=== PATIENT | male | born 1985 | race Two or more races ===

== ENCOUNTER 2019-11-22 14:27 | Emergency (ER) | payer SELFPAY ==
[2019-11-22 14:35] VITALS: BP 132/78; PULSE 90; BMI 30.4
[2019-11-22] MEDS ORDERED: TETRACAINE 0.5% HCL 0.6ML DROPPER.BOTTLE OD ONE (15:02)
[2019-11-22] MEDS ORDERED: TETRACAINE 0.5% OPHTH SOLN 2 ML BOTTLE ONE (15:02)
[2019-11-22] MEDS ORDERED: FLUORESCEIN NA 1 EA STRIP ONE (15:02)
[2019-11-22] MEDS ORDERED: FLUORESCEIN NA 1 EA STRIP OD ONE (15:02)
--- NOTE | 2019-11-22 15:13 | PDOC ---
History of Present Illness - General Chief Complaint: Eye Problem Stated Complaint: LT. EYE SWELLING Time Seen by Provider: 11/22/19 15:00 History Source: Patient Exam Limitations: Clinical Condition - History of Present Illness Initial Comments: 11/22/19 15:57 Patient with no significant past medical history present with complaint of foreign body sensation in left eye for 3 days of unknown etiology. Patient reported feeling of something inside the left upper eyelid. Denies any injury or trauma to the eye. 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 Denies blurry vision or change in vision. Denies contact lens abuse. Denies any other symptoms Is this a multiple visit Asthma Patient?: No Timing/Duration: 24 hours Past History - Medical History Allergies/Adverse Reactions: Allergies Allergy/AdvReac Type Severity Reaction Status Date / Time No Known Allergies Allergy Verified 06/24/19 11:23 Home Medications: Ambulatory Orders Albuterol Sulfate Inhaler - [Ventolin HFA Inhaler -] 1 - 2 inh PO Q4H #1 inhaler 06/24/19 Erythromycin 0.5% Eye Ointment [Erythromycin 0.5% Eye Ointment -] 1 applic OD TID 5 Days #1 tube 11/22/19 Ofloxacin 0.3% Ophth Soln [Ocuflox -] 2 drop OD Q6H 5 Days #1 bottle 11/22/19 COPD: No Other medical history: covid (+) spring 2019 - Psycho-Social/Smoking History Smoking History: Never smoked Have you smoked in the past 12 months: No - Substance Abuse Hx (Audit-C & DAST Scrn) How often the patient has a drink containing alcohol: Monthly or less Score: In Men: 4 or > Positive; In Women: 3 or > Positive: 1 Screen Result (Pos requires Nsg. Audit-10AR): Negative In the last yr the pt used illegal drug/Rx for NonMed reason: No Score: Yes response is considered Positive: 0 Screen Result (Positive result requires Nsg. DAST-10): Negative Review of Systems - Review of Systems Able to Perform ROS?: Yes Is the patient limited Citizen Of [place] proficient: No Constitutional: No: Chills, Fever, Malaise HEENTM: Yes: Symptoms Reported, See HPI, Eye Pain (left eye discomfort). No: Blurred Vision, Tearing, Recent change in vision, Double Vision, Cataracts, Ear Pain, Ocular Prothesis, Ear Discharge, Nose Pain, Nose Congestion, Tinnitus, Nose Bleeding, Hearing Loss, Throat Pain, Throat Swelling, Mouth Pain, Dental Problems, Difficulty Swallowing, Mouth Swelling, Other Respiratory: No: Symptoms reported, See HPI, Cough, Orthopnea, Shortness of Breath, SOB with Exertion, SOB at Rest, Stridor, Wheezing, Productive cough, Hemoptysis, Other Cardiac (ROS): No: Symptoms Reported, See HPI, Chest Pain, Edema, Irregular Heart Rate, Lightheadedness, Palpitations, Syncope, Chest Tightness, Other ABD/GI: No: Symptoms Reported, Nausea, Vomiting All Other Systems: Reviewed and Negative *Physical Exam - Vital Signs Last Vital Signs Temp Pulse Resp BP Pulse Ox 90 18 132/78 99 11/22/19 14:33 11/22/19 14:33 11/22/19 14:33 11/22/19 14:33 - Physical Exam 11/22/19 16:00 GENERAL: Well developed, well nourished. Awake and alert. No acute distress. HEENT: No foreign body visualized on eye exam. Pupil equal and reflective to light bilateral. Normal conjunctival. No corneal abrasion or scarring on exam with fluorescein stain and tetracaine. eye irrigated again and eyewash station. 20/20 visual acuity in bilateral eye. Normocephalic, atraumatic. No conjunctival pallor. Sclera are non-icteric. Moist mucous membranes. Oropharynx is clear. NECK: Supple. Full ROM. PULMONARY: No evidence of respiratory distress. MUSCULOSKELETAL Normal range of motion at all joints. SKIN: Warm and dry. Normal capillary refill. No skin erythema or eyelid swelling. NEUROLOGICAL: Alert, awake, appropriate. Gait is normal without ataxia. PSYCHIATRIC: Cooperative. Good eye contact. Appropriate mood General Appearance: Yes: Nourished, Appropriately Dressed. No: Apparent Distress ED Treatment Course - Medications Given in the ED: ED Medications Discontinued Medications Generic Name Dose Route Start Last Admin Trade Name Freq PRN Reason Stop Dose Admin Fluorescein Sodium 1 ea 11/22/19 15:02 11/22/19 15:03 Fluorets - OD 11/22/19 15:03 1 ea ONCE ONE Administration Tetracaine HCl 1 drop 11/22/19 15:02 11/22/19 15:03 Tetravisc 0.5% Eye Drops - OD 11/22/19 15:03 1 drop ONCE ONE Administration Medical Decision Making - Medical Decision Making 11/22/19 15:58 Patient with no significant past medical history present with complaint of foreign body sensation in left eye for 3 days of unknown etiology. Patient reported feeling of something inside the left upper eyelid. Denies any injury or trauma to the eye. 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 Denies blurry vision or change in vision. Denies contact lens abuse. Denies any other symptoms No foreign body visualized on eye exam. Pupil equal and reflective to light bilateral. Normal conjunctival. No corneal abrasion or scarring on exam with fluorescein stain and tetracaine. eye irrigated again and eyewash station. Patient tolerated procedure well. Patient symptoms likely possible early stye which is not visible now versus previous foreign body in the eye which has come out. Patient stable for discharge topical erythromycin ointment for possible early stye and ofloxacin drops with ophthalmology follow-up Discharge - Discharge Information Problems reviewed: Yes Clinical Impression/Diagnosis: Corneal irritation of left eye Foreign body, intraocular, left eye Qualifiers: Encounter type: initial encounter Qualified Code(s): S05.52XA - Penetrating wound with foreign body of left eyeball, initial encounter Condition: Stable Disposition: HOME - Admission No - Additional Discharge Information Prescriptions: Erythromycin 0.5% Eye Ointment [Erythromycin 0.5% Eye Ointment -] 1 applic OD TID 5 Days #1 tube Ofloxacin 0.3% Ophth Soln [Ocuflox -] 2 drop OD Q6H 5 Days #1 bottle - Follow up/Referral Referrals: Yaya Viera MD [Staff Physician] - Isaac Boudreaux MD [Staff Physician] - - Patient Discharge Instructions Additional Instructions: No foreign body visualized in eye exam. symptoms could be an early stye which is coming on. Use prescribed eye ointment as prescribed and drops. Follow-up with referred ophthalmology if symptoms persist for more than 3 days - Post Discharge Activity
== END 2019-11-22 15:17 | disposition home or self-care (01) ==
LOC: JERFT 14:27
DX: S05.52XA Penetrating wound with foreign body of left eyeball, initial encounter (principal)
CPT/HCPCS: 99284-25